=== PATIENT | male | born 1995 | race Caucasian/White ===

== ENCOUNTER 2017-09-10 19:30 | Emergency (ER) | payer BC ==
[2017-09-10 19:40] VITALS: BP 135/80
[2017-09-10] MEDS ORDERED: AZITHROMYCIN 250 MG TAB PO ONE (19:49)
--- NOTE | 2017-09-10 19:49 | EDPHY ---
H & P Time Seen by Provider: 09/10/17 19:43 HPI/ROS: CHIEF COMPLAINT: Right ear pain HISTORY OF PRESENT ILLNESS: 21-year-old male presents with right ear pain. Onset of runny nose and sore throat 3 days ago. Onset moderate right ear pain today. The pain is somewhat relieved with ibuprofen. History of prior otitis media in childhood. Feels similar. No fever or cough. REVIEW OF SYSTEMS: complete 10 point ROS negative except at noted in the HPI Past Medical/Surgical History: Otitis media Smoking Status: Never smoked Physical Exam: General Appearance: Alert, pleasant Eyes: Pupils equal and round, no conjunctival pallor or injection ENT, Mouth: Right TM-erythematous and retracted, pharyngeal erythema Neck: Shoddy adenopathy Respiratory: Lungs are clear to auscultation Cardiovascular: Regular rate and rhythm Neurological: A&O, nonfocal, normal gait Skin: Warm and dry, no rash Extremities: Normal inspection Psychiatric: Mood and affect normal Constitutional: Initial Vital Signs Temperature (C) 36.8 C 09/10/17 19:37 Heart Rate 87 09/10/17 19:37 Respiratory Rate 18 09/10/17 19:37 Blood Pressure 135/80 H 09/10/17 19:37 O2 Sat (%) 94 09/10/17 19:37 O2 Delivery Mode Room Air Allergies/Adverse Reactions: No Known Allergies Allergy (Unverified 09/10/17 19:37) Home Medications: Medication Instructions Recorded Azithromycin [Zithromax] 250 mg PO DAILY #4 tab 09/10/17 Medical Decision Making ED Course/Re-evaluation: Severe max 500 mg orally and Ibuprofen 600 mg given. Differential Diagnosis: Differential diagnosis includes but is not limited to pneumonia, otitis media, peritonsillar abscess, retropharyngeal abscess, meningitis. Departure - Departure Disposition: Home, Routine, Self-Care Clinical Impression: Otitis media Qualifiers: Otitis media type: suppurative Chronicity: acute Laterality: right Recurrence: not specified as recurrent Spontaneous tympanic membrane rupture: without spontaneous rupture Qualified Code(s): H66.001 - Acute suppurative otitis media without spontaneous rupture of ear drum, right ear Condition: Good Instructions: Ear Infection (ED) Additional Instructions: Ibuprofen 600 mg 3 times daily while the pain persists. Sudafed will help relieve the ear pressure. Referrals: Flaco Haynes MD [Medical Doctor] - As per Instructions Prescriptions: Azithromycin [Zithromax] 250 mg PO DAILY #4 tab
== END 2017-09-10 19:58 | disposition home or self-care (01) ==
DX: H66.001 Acute suppurative otitis media without spontaneous rupture of ear drum, right ear (principal)